=== PATIENT | male | born 1950 | race Caucasian/White ===

== ENCOUNTER 2022-04-28 17:50 | Emergency (ER) | payer OTHER | END 2022-04-28 20:13 | disposition home or self-care (01) | LOC: FER 17:50 | DX: T82.838A Hemorrhage due to vascular prosthetic devices, implants and grafts, initial encounter (principal); E11.22 Type 2 diabetes mellitus with diabetic chronic kidney disease; N18.4 Chronic kidney disease, stage 4 (severe); J44.9 Chronic obstructive pulmonary disease, unspecified; Z87.891 Personal history of nicotine dependence; Y84.0 Cardiac catheterization as the cause of abnormal reaction of the patient, or of later complication, without mention of misadventure at the time of the procedure | CPT/HCPCS: 71045 ==

== ENCOUNTER 2022-04-29 08:00 | Emergency (ER) | payer OTHER ==
[2022-04-29 08:56] LABS: BASOPHIL 0.5 % (0-2); EOSINOPHIL 1.7 % (0-7); HCT 37.1 % (42.0-52.0); HGB 12.7 g/dl (13.2-18.0); LYMPHOCYTE 14.6 % (15-48); MCH 32.6 pg (25.0-31.0); MCHC 34.2 g/dL (32.0-36.0); MCV 95.4 fL (78.0-100.0); MONOCYTE 8.4 % (0-12); MPV 11.9 fL (6.0-9.5); NEUTROPHIL 74.5 % (41-80); NRBC 0; RBC 3.89 M/uL (4.70-6.00); RDW 13.9 % (11.5-14.0); WBC 6.3 K/uL (4.0-10.5)
[2022-04-29 09:15] LABS: INR 1.18 (0.9-1.2); PROTHROMBIN TIME 14.4 SECONDS (11.8-13.4); PTT 35.4 SECONDS (24.4-34.7)
[2022-04-29 09:27] LABS: PLT 41 K/uL (150-400)
== END 2022-04-29 10:49 | disposition other institution (70) ==
LOC: FER 08:00
PROVIDERS: Emergency Medicine
DX: T82.838A Hemorrhage due to vascular prosthetic devices, implants and grafts, initial encounter (principal); D69.6 Thrombocytopenia, unspecified; J44.9 Chronic obstructive pulmonary disease, unspecified; I13.2 Hypertensive heart and chronic kidney disease with heart failure and with stage 5 chronic kidney disease, or end stage renal disease; N18.5 Chronic kidney disease, stage 5; I50.9 Heart failure, unspecified; Z88.2 Allergy status to sulfonamides; Z87.891 Personal history of nicotine dependence
CPT/HCPCS: 36415; 71250; 85025; 85610; 85730; J1170